=== PATIENT | male | born 1960 | race Caucasian/White ===

== ENCOUNTER → 2017-01-24 | Outpatient (CLI) | payer BC ==
[~2017-01-24] MED LIST: 3N1 COMMODE MC; ASPI325T32 PO; ATOR10TA65 PO; CPM MC; DIET75TA PO; GLIM4TAB PO; LIRA0.6P SQ; LISI20TA11 PO; OXYC-481 PO; PIOG1TAB9 PO; TEST2.5G5 TD; TRAM50TA2 PO; WALK1EAC23 MC
--- NOTE | 2017-01-24 11:07 | RADRPT ---
PROCEDURE: XR left knee. CLINICAL INDICATION: Knee pain. TECHNIQUE: AP weightbearing, lateral weightbearing and sunrise views are available for review. COMPARISON: 08/02/2016 FINDINGS: There is a total knee replacement. There is no evidence of loosening of the prosthesis. The osseous structures are normal in mineralization, architecture and alignment No acute fracture or dislocation is seen.No osseous lesions are identified. The soft tissues are unremarkable . IMPRESSION: Unremarkable total knee replacement. RPTAT: [facility] .Santhosh Ahn MD, MD Date Time Electronically viewed and signed by .Santhosh Ahn MD, on 01/24/2017 11:06 .B/
== END | disposition home or self-care (01) ==
LOC: HKI 08:56
PROVIDERS: ATTEND Orthopaedic Surgery
DX: M17.11 Unilateral primary osteoarthritis, right knee (principal); M25.561 Pain in right knee; Z96.652 Presence of left artificial knee joint
CPT/HCPCS: 73562; G0463